=== PATIENT | female | born 1985 | race Caucasian/White ===

== ENCOUNTER → 2023-08-21 13:09 | Outpatient (REF) | payer OTHER, SELFPAY | LOC: RAD 13:09 | PROVIDERS: ATTENDING PHYSICIAN Family Medicine | DX: E04.1 Nontoxic single thyroid nodule (principal); G89.29 Other chronic pain; M54.6 Pain in thoracic spine | CPT/HCPCS: 72072; 76536 ==

== ENCOUNTER 2023-10-03 07:34 | Emergency (ER) | payer OTHER, SELFPAY ==
[2023-10-03 07:43] VITALS: BP 123/80
[2023-10-03 08:24] LABS: % Basophils 0.3 % (0-2); % Eosinophils 0.3 % (0-6); % Immature Granulocytes 0.4 % (0-0.5); % Lymphocytes 9.4 % (20.5-51.1); % Monocytes 10.2 % (1.7-9.3); % Neutrophils 79.4 % (42.2-75.2); Absolute Immature Granulocytes 0.1 10^3/uL (0-0.05); Absolute Lymphocytes 1.1 10^3/uL (1.2-3.4); Absolute Monocytes 1.2 10^3/uL (0.1-0.6); Absolute Neutrophils 9.5 10^3/uL (1.4-6.5); Hematocrit 38.5 % (37.0-47.0); Hemoglobin 13.2 g/dL (12.0-16.0); Mean Corp Hgb Conc. 34.3 g/dL (33.0-37.0); Mean Corpuscular Volume 84.6 fL (81.0-99.0); Mean Platelet Volume 10.1 fL (7.4-10.4); Nucleated Red Blood Cells % 0 %; Platelet Count 302 10^3/uL (130-400); Red Blood Cell Count 4.55 10^6/uL (4.20-5.40); Red Cell Dist. Width 13.2 % (11.5-14.5)
[2023-10-03 08:38] LABS: Monotest Negative (Negative)
[2023-10-03 08:39] LABS: HCG, Serum Qualitative Screen Negative
[2023-10-03 08:40] LABS: ALT (SGPT) 14 U/L (0-35); AST (SGOT) 27 U/L (14-36); Albumin 3.8 g/dl (3.5-5.0); Alkaline Phosphatase 46 U/L (38-126); Blood Urea Nitrogen 8 mg/dl (7-17); Calcium 8.5 mg/dl (8.4-10.2); Carbon Dioxide 27 mmol/L (22-30); Chloride 101 mmol/L (98-107); Glucose 99 mg/dl (70-99); Potassium 4.2 mmol/L (3.5-5.1); Sodium 135 mmol/L (135-145); Total Bilirubin 0.7 mg/dl (0.2-1.3); Total Protein 6.9 g/dl (6.3-8.2); eGFR > 60.00
[2023-10-03 08:47] LABS: COVID-19 Antigen Negative (Negative)
--- NOTE | 2023-10-03 08:59 | ED.GENMED ---
History of Present Illness
General
Chief Complaint: Cold/Flu/URI Symptoms
Source: patient
Exam Limitations: none
Time Seen by Provider: 10/03/23 08:01
Nursing documentation reviewed up to this point in time: agreed with
History of Present Illness
History of Present Illness:
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 Patient reports that she started feeling ill roughly 10 days ago and symptoms
have been constant since that time. She reports near daily fevers with a Tmax of 102.9 �F over the weekend. She has had persistent cough she says occasionally productive of clear sputum. She reports that she has had generalized malaise and
myalgias. Over the weekend myalgias improved but she was still having fevers. She thought symptoms were likely viral but over the past few days has started to develop increasing shortness of breath particular with exertion and so came to the
emergency room to be assessed. She denies any chest pain. She has some some mild nausea but no vomiting. Denies any urinary symptoms. She denies any other complaints.
Past History
Past History
ED Past Medical History: None
ED Past Surgical History: None
Social History
Tobacco: Non-smoker
Alcohol: None
Drug: None
Living: with family
Review of Systems
Review of Systems
All Other Systems: ROS reviewed and negative except as documented in HPI and ROS
Constitutional: Reports fever, fatigue and chills
EENT: Denies sore throat or runny nose
Respiratory: Reports cough and trouble breathing
Cardiac: Denies chest pain or palpitations
ABD/GI: Reports nausea; Denies abdominal pain or vomiting
: Denies dysuria or frequency
Musculoskeletal: Reports muscle pain (Myalgias)
Phy Exam
Physical Exam
Physical Exam:
General: Awake, alert; no acute distress
Head: Normocephalic, atraumatic
Eyes: Conjunctiva normal, pupils equal round and reactive to light bilaterally
Ears: TMs clear bilaterally
Nose: No swelling of the turbinates
Throat: Airway intact, handling secretions, no oropharyngeal erythema or exudate, midline uvula
Neck: Trachea midline, no cervical adenopathy appreciated
Lungs: Faint rhonchorous breath sounds left upper lung, no focal wheezing appreciated, frequent coughing; normal respiratory rate, normal pulse ox on room air
Heart: Regular rate and rhythm, no murmurs, gallops, or rubs
Neuro: No gross deficit
Extremities: No edema in extremities, warm and well-perfused
Scores
Heart Failure Risk
Heart Failure Risk Score: Not Applicable
Heart Score for Chest Pain Patients
STEMI patient?: Not applicable
Withdrawal Assessment of Alcohol
Withdrawal Assessment Completed?: Not applicable
Course
Orders/Labs/Results
Orders:
Orders
10/03/23 08:04
Urinalysis Reflex To Culture Urgent
Test Result ONCE
CR Chest - 2 Views Urgent
Comment:
Reason For Exam: persistent cough, fever, sob
10/03/23 08:12
COVID-19 Antigen Urgent
Source: Nasal Swab
Complete Blood Count/With Diff Urgent
Comprehensive Metabolic Panel Urgent
HCG, Serum Qualitative Screen Urgent
Monotest Urgent
10/03/23 09:41
Amoxicillin 875 mg/Clav 125 mg [Augmentin 875 mg/125 mg] 1 tablet PO NOW STA
Azithromycin [Zithromax] 500 mg PO NOW STA
Abnormal Lab Results
10/03/23
08:12
WBC 12.0 H 10^3/uL
(4.8-10.8)
Abs Immat Gran (auto) 0.1 H 10^3/uL
(0-0.05)
Absolute Neuts (auto) 9.5 H 10^3/uL
(1.4-6.5)
Absolute Lymphs (auto) 1.1 L 10^3/uL
(1.2-3.4)
Absolute Monos (auto) 1.2 H 10^3/uL
(0.1-0.6)
Neutrophils % 79.4 H %
(42.2-75.2)
Lymphocytes % 9.4 L %
(20.5-51.1)
Monocytes % 10.2 H %
(1.7-9.3)
10/03/23 08:12
10/03/23 08:12
Vital Signs
Initial and Last Documented VS:
Initial Vital Signs
Temp Pulse Resp BP Pulse Ox
37.3 C 98 20 123/80 100
10/03/23 07:43 10/03/23 07:43 10/03/23 07:43 10/03/23 07:43 10/03/23 07:43
Last Documented Vital Signs
Temp Pulse Resp BP Pulse Ox
37.3 C 98 16 123/80 100
10/03/23 07:43 10/03/23 07:43 10/03/23 08:16 10/03/23 07:43 10/03/23 07:43
MDM/Problems Addressed
Differential Diagnosis Includes:
Bronchitis, pneumonia, viral URI; PE considered somewhat less likely with normal pulse ox, normal respiratory rate, high fever suggesting infectious etiology and no risk factors for PE
MDM/Problems Addressed:
38-year-old female presents to the emergency room with persistent fever and cough, malaise for the past 10 days, now increasing shortness of breath. Vital signs normal here. Physical exam as above. Will check labs including a CBC and a CMP.
Check hCG. Check for mono and COVID. Will send for chest x-ray to evaluate for pneumonia. Monitor closely reassess after the above.
Labs reviewed: CBC shows slight leukocytosis to 12 with predominant neutrophils. CMP no clinically significant abnormalities. hCG negative. Monospot negative. COVID-negative. Chest x-ray reviewed by me appears to show right middle
lung/perihilar pneumonia. This fits with clinical picture; vital signs have been stable here, CURB 65 score 0 with no significant comorbidities. Reasonable candidate for outpatient therapy with antibiotics. Will start on Augmentin and
azithromycin. Will have her follow-up with her primary doctor as an outpatient. She feels comfortable this plan. We did speak about return precautions including failure of symptom improvement in the next few days with antibiotic treatment. All
questions answered.
*Radiology
Radiology exam reviewed: preliminary read by ED provider
*Pulse Oximetry
Patient hypoxic: no
*Critical Care Note
Total Time (30-74mins, 75-104mins- exclusive of procedures): Not Applicable
Data Reviewed
Source: patient
ED Attending Note
-
Portions of this chart may have been created with voice recognition software.� Occasional wrong word or��sound alike� substitutions may have occurred due to the inherent limitations of voice recognition software.
Discharge Plan
Departure
Patient Disposition: Home (Routine Discharge)
Date of Disposition: 10/03/23
Time of Disposition: 09:43
Patient with high blood pressure during this ER visit?: No
Discharge Problem:
Pneumonia
Instructions: Pneumonia in adults
Prescriptions:
New
amoxicillin-pot clavulanate 875-125 mg tablet
1 tab PO BID Qty: 14 0RF
azithromycin [Zithromax] 250 mg tablet
250 mg PO DAILY Qty: 4 0RF
No Action
Vitamin Tablet
1 tab PO DAILY
Referrals:
Jes Doherty DO [Family Provider] - Follow up in 5-7 days
Activity Restrictions/Additional Instructions:
Thank you for visiting the Emergency Department at [facility].
1. Please schedule a follow up appointment as directed. Call first thing tomorrow morning to make an appointment.
2. If indicated, please take your medications as instructed and indicated on discharge paperwork.
3. If any of your symptoms do not improve, or persist, or become more severe within 6-12 hours, please return to the emergency department for further care.
4. Please return to the emergency department if you develop a headache, neck pain/stiffness, fever greater than 100.4F, chest pain, shortness of breath, persistent nausea, vomiting, slurred speech, difficulty walking, numbness/tingling, weakness,
signs of infection or any other symptoms that are worrisome to you.
Please call [phone] if you have any questions.
Interventions
Interventions:
*Risk Screen - Suicide Last Done: 10/03/23 07:56
*General Assessment Last Done: 10/03/23 07:56
*Neglect/Abuse Screening Last Done: 10/03/23 07:56
ED- Fall Risk Assessment Last Done: 10/03/23 09:19
*ED COVID-19 Vaccine History Last Done: 10/03/23 07:56
ED- Pulmonary Assessment Last Done: 10/03/23 07:56
Discharge Date and Time
Print Language: [id number]
[2023-10-03] MEDS: ZITHROMAX 500 MG PO (09:47)
[2023-10-03] MEDS: AUGMENTIN 875 MG/125 MG 1 TABLET PO (09:48)
[2023-10-03 09:53] VITALS: BP 99/71
== END 2023-10-03 09:53 | disposition home or self-care (01) ==
LOC: EMR 07:34
PROVIDERS: EMERGENCY PHYSICIAN Emergency Medicine; FAMILY PHYSICIAN Family Medicine
DX: J18.9 Pneumonia, unspecified organism (principal); R11.0 Nausea; Z11.52 Encounter for screening for COVID-19; I73.00 Raynaud's syndrome without gangrene; Z88.1 Allergy status to other antibiotic agents
CPT/HCPCS: 99283; 71046; 80053; 84703; 85025; 86308; 87811

== ENCOUNTER 2023-10-11 17:35 | Emergency (ER) | payer OTHER, SELFPAY ==
[2023-10-11 17:37] VITALS: BP 121/79
[2023-10-11 18:48] LABS: % Basophils 0.3 % (0-2); % Eosinophils 0.7 % (0-6); % Immature Granulocytes 0.4 % (0-0.5); % Lymphocytes 16.7 % (20.5-51.1); % Monocytes 8.1 % (1.7-9.3); % Neutrophils 73.8 % (42.2-75.2); Absolute Eosinophils 0.1 10^3/uL (0-0.7); Absolute Immature Granulocytes 0.1 10^3/uL (0-0.05); Absolute Lymphocytes 1.9 10^3/uL (1.2-3.4); Absolute Monocytes 0.9 10^3/uL (0.1-0.6); Absolute Neutrophils 8.5 10^3/uL (1.4-6.5); Hematocrit 34.3 % (37.0-47.0); Mean Corpuscular Hgb 29.1 pg (27.0-31.0); Mean Corpuscular Volume 83.1 fL (81.0-99.0); Mean Platelet Volume 10.2 fL (7.4-10.4); Nucleated Red Blood Cells % 0 %; Platelet Count 379 10^3/uL (130-400); Red Blood Cell Count 4.13 10^6/uL (4.20-5.40); Red Cell Dist. Width 13.3 % (11.5-14.5); White Blood Cell Count 11.5 10^3/uL (4.8-10.8)
--- NOTE | 2023-10-11 18:54 | ED.GENMED ---
History of Present Illness
General
Chief Complaint: Breathing Problem
Source: patient
Exam Limitations: none
Time Seen by Provider: 10/11/23 18:10
History of Present Illness
History of Present Illness:
38-year-old female complaining of ongoing shortness of breath and rapid heartbeat. Patient diagnosed with pneumonia bout a week ago. Has had symptoms for 2 weeks. Had a negative COVID test. Fever has resolved cough is improving some but still
moderate shortness of breath with exertion and rapid heart rate with exertion. No pleuritic chest pain.
Past History
Past History
ED Past Medical History: None
ED Past Surgical History: Orthopedic and Other ([place] teeth)
Social History
Tobacco: Non-smoker
Alcohol: None
Drug: None
Living: with family
Review of Systems
Review of Systems
All Other Systems: Not applicable
Constitutional: Denies fever
Respiratory: Denies hemoptysis
Cardiac: Denies chest pain or syncope
Phy Exam
Physical Exam
Physical Exam:
GENERAL: Alert and oriented in no apparent distress
EYE: Orbits normal.
NECK: Supple, no significant adenopathy.
ENT: Pharynx without erythema
CARDIAC: Regular rate and rhythm without any obvious murmurs.
LUNGS: No respiratory distress at rest. Rhonchi right greater than left base. No wheezing no rub.
ABDOMEN: Soft, without focal tenderness or distention
NEUROLOGICAL: Alert and oriented , grossly non-focal
SKIN: Warm and dry, no rash or lesion, no discoloration, skin intact.
MUSCULOSKELETAL: No edema,no deformity.Good color
PSYCH: Normal and appropriate interaction.
Course
Orders/Labs/Results
Orders:
Orders
10/11/23 17:42
Electrocardiogram (*1) Urgent
Reason for Study: Shortness of Breath
EKG- Treatment ONCE
10/11/23 18:17
Electrocardiogram (*1) Stat
Reason for Study: Other
Other Reason for Exam: chest pain
CT Chest Pe Study Urgent
Comment:
Reason For Exam: Ongoing shortness of breath and tachypnea tachycar
IV Insert/Care/Rem.- Treatment PRN
0.9% Sodium Chloride 500 ml [Nss] 500 ml IV BOLUS
Pulse Ox/cont/shift [RESP] Stat
Quantity: 1
10/11/23 18:18
Test Result ONCE
10/11/23 18:40
Basic Metabolic Panel Urgent
Beta Hcg Serum Qualitative Screen [HCG, Serum Qualitative Screen] Urgent
COVID-19 Antigen Urgent
Source: Nasal Swab
Complete Blood Count/With Diff Urgent
Troponin I Urgent
10/11/23 20:33
Doxycycline [Vibramycin] 100 mg PO NOW STA
Abnormal Lab Results
10/11/23
18:40
WBC 11.5 H 10^3/uL
(4.8-10.8)
RBC 4.13 L 10^6/uL
(4.20-5.40)
Hct 34.3 L %
(37.0-47.0)
Abs Immat Gran (auto) 0.1 H 10^3/uL
(0-0.05)
Absolute Neuts (auto) 8.5 H 10^3/uL
(1.4-6.5)
Absolute Monos (auto) 0.9 H 10^3/uL
(0.1-0.6)
Lymphocytes % 16.7 L %
(20.5-51.1)
Glucose 102 H mg/dl
(70-99)
10/11/23 18:40
10/11/23 18:40
Vital Signs
Initial and Last Documented VS:
Initial Vital Signs
Temp Pulse Resp BP Pulse Ox
98.1 F 86 18 121/79 100
10/11/23 17:37 10/11/23 17:37 10/11/23 17:37 10/11/23 17:37 10/11/23 17:37
Last Documented Vital Signs
Temp Pulse Resp BP Pulse Ox
98.1 F 86 18 121/79 95
10/11/23 17:37 10/11/23 17:37 10/11/23 17:37 10/11/23 17:37 10/11/23 19:26
MDM/Problems Addressed
Differential Diagnosis Includes:
Patient with ongoing shortness of breath tachycardia. However some of her pneumonia symptoms have improved. Pulmonary emboli workup to rule out other etiology.
*Radiology
Radiology exam reviewed: radiology read reviewed (Multifocal pneumonia.)
*Pulse Oximetry
Patient hypoxic: no
*EKG
Interpreted by ED Provider?: Yes
Interpretation: abnormal
Comparison EKG: changes noted
Heart Rate: 70
Rate: normal
Rhythm: sinus
[place]: normal axis
Interval: normal interval
QRS Pattern: normal QRS
Ischemia: no ischemia
*Critical Care Note
Total Time (30-74mins, 75-104mins- exclusive of procedures): Not Applicable
Data Reviewed
Review of Other/Old Records Reveals: Labs, Records and Radiology Studies
Update Note
Update Note:
Reviewed with pulmonary. Agree with adding more atypical coverage. Patient nontoxic in no distress. No indication for admission at this time patient is comfortable with this approach
ED Attending Note
-
Portions of this chart may have been created with voice recognition software.� Occasional wrong word or��sound alike� substitutions may have occurred due to the inherent limitations of voice recognition software.
Discharge Plan
Departure
Patient Disposition: Home (Routine Discharge)
Date of Disposition: 10/11/23
Time of Disposition: 20:34
Patient with high blood pressure during this ER visit?: No
Discharge Problem:
Multifocal pneumonia
Instructions: Community-Acquired Pneumonia, Adult (DC)
Prescriptions:
New
doxycycline hyclate 100 mg capsule
100 mg PO BID 10 Days Qty: 20 0RF
No Action
Vitamin Tablet
1 tab PO DAILY
amoxicillin-pot clavulanate 875-125 mg tablet
1 tab PO BID Qty: 14 0RF
azithromycin [Zithromax] 250 mg tablet
250 mg PO DAILY Qty: 4 0RF
Referrals:
Kei Ayers MD [Active] - Next open appointment
Jes Doherty DO [Family Provider] - Follow up in 2-3 days
Activity Restrictions/Additional Instructions:
Finish out the Augmentin
Start doxycycline
Return with any concerns that symptoms are not improving or any progression in symptoms
Follow-up CAT scan in 6 weeks
I gave you the name of the pulmonary physician I talked to if you decide to have pulmonary follow-up
Interventions
Interventions:
*Risk Screen - Suicide Last Done: 10/11/23 17:37
*General Assessment Last Done: 10/11/23 17:37
*Neglect/Abuse Screening Last Done: 10/11/23 17:37
ED- Fall Risk Assessment Last Done: 10/11/23 18:54
*ED COVID-19 Vaccine History Last Done: 10/11/23 19:26
ED- Cardiac Assessment Last Done: 10/11/23 19:26
ED- Pulmonary Assessment Last Done: 10/11/23 19:26
Discharge Date and Time
Print Language: [id number]
[2023-10-11 19:04] LABS: COVID-19 Antigen Negative (Negative)
[2023-10-11 19:12] LABS: HCG, Serum Qualitative Screen Negative
[2023-10-11 19:15] LABS: Troponin I < 0.012 ng/ml
[2023-10-11 19:21] LABS: Blood Urea Nitrogen 7 mg/dl (7-17); Calcium 9.4 mg/dl (8.4-10.2); Carbon Dioxide 27 mmol/L (22-30); Chloride 105 mmol/L (98-107); Glucose 102 mg/dl (70-99); Sodium 137 mmol/L (135-145); eGFR > 60.00
[2023-10-11] MEDS: VIBRAMYCIN 100 MG PO (20:36)
[2023-10-11 20:46] VITALS: BP 118/78
== END 2023-10-11 20:49 | disposition home or self-care (01) ==
LOC: EMR 17:35
PROVIDERS: EMERGENCY PHYSICIAN Emergency Medicine; FAMILY PHYSICIAN Family Medicine
DX: J18.9 Pneumonia, unspecified organism (principal); Z11.52 Encounter for screening for COVID-19; Z88.1 Allergy status to other antibiotic agents
CPT/HCPCS: 99285; 71275; 80048; 84484; 84703; 85025; 87811; 93005; Q9967

== ENCOUNTER → 2023-11-27 06:43 | Outpatient (REF) | payer OTHER, SELFPAY | LOC: PAVMRI 06:43 | PROVIDERS: ATTENDING PHYSICIAN Family Medicine | DX: M54.6 Pain in thoracic spine (principal) | CPT/HCPCS: 72146 ==

== ENCOUNTER → 2024-01-15 13:26 | Outpatient (REF) | payer OTHER, SELFPAY | LOC: HWRAD 13:26 | PROVIDERS: ATTENDING PHYSICIAN Internal Medicine Critical Care Medicine; FAMILY PHYSICIAN Family Medicine | DX: R59.0 Localized enlarged lymph nodes (principal) | CPT/HCPCS: 71250 ==

== ENCOUNTER → 2024-02-12 10:02 | Outpatient (REF) | payer OTHER, SELFPAY | LOC: WDC 10:02 | PROVIDERS: ATTENDING PHYSICIAN Physician Assistant Medical | DX: N63.20 Unspecified lump in the left breast, unspecified quadrant (principal); N63.22 Unspecified lump in the left breast, upper inner quadrant | CPT/HCPCS: 76642; 77062; 77066 ==

== ENCOUNTER → 2024-04-08 12:53 | Outpatient (REF) | payer OTHER, SELFPAY | LOC: RAD 12:53 | PROVIDERS: ATTENDING PHYSICIAN Family Medicine | DX: E04.1 Nontoxic single thyroid nodule (principal) | CPT/HCPCS: 76536 ==

== ENCOUNTER → 2024-09-23 13:27 | Outpatient (REF) | payer OTHER, SELFPAY | LOC: HWRAD 13:27 | PROVIDERS: ATTENDING PHYSICIAN Obstetrics & Gynecology; FAMILY PHYSICIAN Family Medicine | DX: N92.6 Irregular menstruation, unspecified (principal) | CPT/HCPCS: 76830; 76856 ==